=== PATIENT | male | born 1965 | race Caucasian/White ===

== ENCOUNTER 2022-08-04 11:56 | Inpatient (IN) | payer OTHER ==
[2022-08-01 22:15] VITALS: BP 116/68
[~2022-08-04] VITALS: Ht 170.2 cm; Wt 63.5 kg
--- NOTE | 2022-08-04 12:10 | NUR ---
[id number] FROM HOME C/O SYNCOPE 30 MINS AGO. PT STATES "COUGHING BLOOD" SINCE YESTERDAY. PLACED IN BED, AAOX4, BREATHING EVEN AND UNLABORED SATURATING AT 98%RA, BP- 102/64.
[2022-08-04] MEDS ORDERED: ONDANSETRON 4 MG TAB.RAPDIS ONE (12:20)
--- NOTE | 2022-08-04 12:20 | NUR ---
PRINT COLOR OPERATOR AT BEDSIDE
[2022-08-04] MEDS ORDERED: IV NS 0.9% 1,000 ML BAG IV ONE (12:30)
[2022-08-04] MEDS ORDERED: ONDANSETRON 4 MG TAB.RAPDIS PO ONE (12:30)
--- NOTE | 2022-08-04 12:38 | NUR ---
PATIENT TAKEN TO CT VIA [facility]
[2022-08-04 12:45] LABS: BASOPHILS % (AUTO) 0.2 % (0.0-2.0); EOSINOPHILS % (AUTO) 0.1 % (0.0-6.0); HEMATOCRIT 41 % (39-51); HEMOGLOBIN 12.8 g/dL (13.5-17.5); LYMPHOCYTES # (AUTO) 2.1 K/uL (0.8-4.8); LYMPHOCYTES % (AUTO) 10.5 % (20.0-44.0); MEAN CORPUSCULAR HGB CONC 32 g/dl (31.0-36.0); MEAN CORPUSCULAR VOLUME 90 fL (80-96); MONOCYTES # (AUTO) 0.8 K/uL (0.1-1.30); MONOCYTES % (AUTO) 4.2 % (2.0-12.0); NEUTROPHILS # (AUTO) 17.1 K/uL (1.8-8.9); PLATELET COUNT (AUTO) 494 K/uL (150-450); RED BLOOD CELL COUNT(AUTO) 4.48 MIL/uL (4.5-6.0); WHITE BLOOD COUNT (AUTO) 20.1 K/uL (4.3-11.0)
[2022-08-04 12:54] LABS: CALCIUM, SERUM 8.9 mg/dL (8.5-10.1); CARBON DIOXIDE 25 mmol/L (21-32); CHLORIDE 101 mmol/L (98-107); CREATININE 1.1 mg/dL (0.6-1.3); GLUCOSE 116 mg/dL (74-106); POTASSIUM 3.8 mmol/L (3.5-5.1); SODIUM SERUM 136 mmol/L (136-145); UREA NITROGEN, BLOOD 47 mg/dL (7-18)
[2022-08-04 13:00] LABS: ALANINE AMINOTRANSFERASE 29 U/L (12-78); ALBUMIN 3.5 g/dL (3.4-5.0); ALKALINE PHOSPHATASE 71 U/L (46-116); ASPARTATE AMINOTRANSFERASE 22 U/L (15-37); BILIRUBIN,DIRECT 0.1 mg/dL (0.0-0.2); BILIRUBIN,TOTAL 0.6 mg/dL (0.2-1.0); TOTAL PROTEIN, SERUM 7.3 g/dL (6.4-8.2)
--- NOTE | 2022-08-04 13:27 | NUR ---
PATIENT TAKEN TO CT VIA [facility]NEY FOR CT ABDOMEN
[2022-08-04] MEDS ORDERED: IOHEXOL-300 100 ML VIAL IV ONE (13:33)
[2022-08-04] MEDS ORDERED: IV NS 0.9% 250 ML IV ONE (13:33)
[2022-08-04] MEDS ORDERED: CT SWABBABLE VALVE TRANS SET 1 EA INFUS.SET MC ONE (13:34)
--- NOTE | 2022-08-04 13:56 | NUR ---
MOVE SHEET SUBMITTED.
[2022-08-04] MEDS ORDERED: PIPERACILLIN /TAZOBACTAM 2.25 G in IV D5W 50 ML IV ONE (14:00)
[2022-08-04] MEDS ORDERED: PANTOPRAZOLE 40 MG VIAL IV ONE (14:00)
--- NOTE | 2022-08-04 14:02 | NUR ---
SWAB FOR COVID19 SENT TO LAB
[2022-08-04] MEDS ORDERED: PANTOPRAZOLE 40 MG VIAL ONE (14:06)
--- NOTE | 2022-08-04 15:03 | NUR ---
JAZZY FROM [facility] CALLED [phone] AUTH #[id number]
--- NOTE | 2022-08-04 15:06 | NUR ---
[facility] CALLED FOUNDATION RELATIONS MANAGER PAGED.
--- NOTE | 2022-08-04 17:09 | NUR ---
[facility] CALLED BAGGER MEAT PAGED.
[2022-08-04] MEDS ORDERED: IV NS 0.9% 500 ML IV ONE (19:30)
[2022-08-04] MEDS ORDERED: MORPHINE SULFATE INJ 2 MG/ML DISP.SYRIN IV ONE (19:30)
[2022-08-04 20:04] LABS: BASOPHILS % (AUTO) 0.3 % (0.0-2.0); EOSINOPHILS % (AUTO) 0.2 % (0.0-6.0); HEMATOCRIT 36 % (39-51); LYMPHOCYTES # (AUTO) 2.6 K/uL (0.8-4.8); LYMPHOCYTES % (AUTO) 18.2 % (20.0-44.0); MEAN CORPUSCULAR HGB CONC 33 g/dl (31.0-36.0); MEAN CORPUSCULAR VOLUME 89 fL (80-96); MONOCYTES % (AUTO) 7.1 % (2.0-12.0); NEUTROPHILS # (AUTO) 10.8 K/uL (1.8-8.9); NEUTROPHILS % (AUTO) 74.2 % (43.0-81.0); PLATELET COUNT (AUTO) 402 K/uL (150-450); RED BLOOD CELL COUNT(AUTO) 4.02 MIL/uL (4.5-6.0); WHITE BLOOD COUNT (AUTO) 14.5 K/uL (4.3-11.0)
--- NOTE | 2022-08-04 20:40 | NUR ---
PT GOING TO 312-1
[2022-08-04] MEDS ORDERED: MORPHINE SULFATE INJ 2 MG/ML DISP.SYRIN IV PRN (21:00)
[2022-08-04] MEDS ORDERED: ACETAMINOPHEN 325 MG TABLET PO PRN (21:00)
[2022-08-04] MEDS ORDERED: MAG HYDROX/AL HYDROX/SIMETH 30 ML UDC PO PRN (21:00)
[2022-08-04] MEDS ORDERED: MAGNESIUM HYDROXIDE 30 ML UDC PO PRN (21:00)
[2022-08-04] MEDS ORDERED: LORAZEPAM INJ 2 MG/ML VIAL IV PRN (21:00)
[2022-08-04] MEDS ORDERED: IV D5 LR 500 ML IV PRN (21:00)
[2022-08-04] MEDS ORDERED: ONDANSETRON HCL/PF 4 MG/2 ML VIAL IVP PRN (21:00)
--- NOTE | 2022-08-04 21:27 | NUR ---
REPORT GIVEN TO [facility] ROOM 312-1 FOR JAYLA
[2022-08-04 22:30] VITALS: BP 116/68
[2022-08-04] MEDS: PANTOPRAZOLE 40 MG VIAL IV SCH (22:46)
[2022-08-04] MEDS ORDERED: IV D5 LR 1,000 ML IV PRN (23:00)
[2022-08-05 07:38] LABS: BASOPHILS % (AUTO) 0.5 % (0.0-2.0); EOSINOPHILS % (AUTO) 0.4 % (0.0-6.0); HEMATOCRIT 30 % (39-51); LYMPHOCYTES # (AUTO) 3.2 K/uL (0.8-4.8); LYMPHOCYTES % (AUTO) 37.9 % (20.0-44.0); MEAN CORPUSCULAR HGB CONC 34 g/dl (31.0-36.0); MEAN CORPUSCULAR VOLUME 89 fL (80-96); MONOCYTES # (AUTO) 0.6 K/uL (0.1-1.30); MONOCYTES % (AUTO) 7.8 % (2.0-12.0); NEUTROPHILS # (AUTO) 4.4 K/uL (1.8-8.9); NEUTROPHILS % (AUTO) 53.4 % (43.0-81.0); PLATELET COUNT (AUTO) 353 K/uL (150-450); RED BLOOD CELL COUNT(AUTO) 3.32 MIL/uL (4.5-6.0); WHITE BLOOD COUNT (AUTO) 8.3 K/uL (4.3-11.0)
[2022-08-05 07:55] LABS: CALCIUM, SERUM 8.2 mg/dL (8.5-10.1); MAGNESIUM 1.8 mg/dL (1.8-2.4); POTASSIUM 3.9 mmol/L (3.5-5.1)
[2022-08-05 08:00] VITALS: BP 100/46
--- NOTE | 2022-08-05 08:09 | NUR ---
RN OPENING NOTE RECEIVED PATIENT IN BED, AO X 4. ABLE TO RESPONDS PHYSICAL STIMULI. RESPIRATORY EVEN AND UNLABORED ON ROOM AIR. IN NO ACUTE DISTRESS OBSERVED. SKIN IS WARM TO TOUCH, KEEP CLEAN/DRY. KEPT ELEVATED HOB FOR ASPIRATION PRECAUTION/ENSURE AIRWAY, AND LOWEST BED POSITIONED. BED ALARM IS ON AT ALL THE TIME FOR SAFETY. CALL LIGHT WITHIN REACH, WILL CONTINUE TO MONITOR
[2022-08-05 08:28] LABS: THYROID STIMULATING HORMONE 1.834 uIU/mL (0.358-3.74)
[2022-08-05] MEDS: PANTOPRAZOLE 40 MG VIAL IV SCH (08:48)
[2022-08-05 09:21] LABS: THYROID STIMULATING HORMONE 1.853 uIU/mL (0.358-3.74)
[2022-08-05] MEDS ORDERED: PANT40TA2 PO (09:46)
[2022-08-05] MEDS ORDERED: FERR325T23 PO (09:48)
[2022-08-05 12:00] VITALS: BP 94/46
--- NOTE | 2022-08-05 14:10 | NUR ---
PATIENT D/C TO HOME AND GIVEN DISCHARGE INSTRUCTION TO HE'S SON AND DTR INCLUDE NEW MEDICATIONS, SIDE EFFECTS, MODERATE DIET/LIFE STYLE CHANGE, AND TOBACCO CESSATION. PATIENT IN STABLE CONDITION, TOLERATED SOFT DIET, DENIES NAUSEATE/VOMITING. LEFT FACILITY ACCOMPANIED BY STAFF TO THE PRIVATE CAR SAFELY.
[2022-08-05 16:00] VITALS: BP 140/50
== END 2022-08-05 20:30 | disposition home or self-care (01) | DRG 241 ==
LOC: ER 11:58 → TELE 21:14 → MED 22:41 → TELE 08-05 08:55
PROVIDERS: ADMIT Nurse Practitioner Acute Care
DX: K27.4 Chronic or unspecified peptic ulcer, site unspecified, with hemorrhage (principal); K76.0 Fatty (change of) liver, not elsewhere classified; D72.829 Elevated white blood cell count, unspecified; E61.1 Iron deficiency; E86.0 Dehydration; K29.71 Gastritis, unspecified, with bleeding; Z20.822 Contact with and (suspected) exposure to COVID-19; K21.9 Gastro-esophageal reflux disease without esophagitis; F17.210 Nicotine dependence, cigarettes, uncomplicated; R79.89 Other specified abnormal findings of blood chemistry
CPT/HCPCS: 36415; 70450-TC; 71045-TC; 80048-TC; 80061-TC; 80076-TC; 82728-TC; 83540-TC; 83735-TC; 84100-TC; 84439-TC; 84443-TC; 84484-TC; 85025-TC; 87040-TC; 87081-TC; 93307-TC; C9113; C9803; G0378; J2543; J3490; J7040; J7050; J7060; Q0162; Q9967